=== PATIENT | female | born 1995 | race Caucasian/White ===

== ENCOUNTER 2019-10-30 23:09 | Emergency (ER) | payer MEDICAID ==
[~2019-10-30] VITALS: Ht 167.6 cm; Wt 73.0 kg
[2019-10-30 23:27] VITALS: Ht 167.6 cm; Wt 73.0 kg
[2019-10-31 02:20] VITALS: BP 128/79
== END 2019-10-31 02:20 | disposition home or self-care (01) ==
LOC: ED 23:09
DX: N83.201 Unspecified ovarian cyst, right side (principal)
CPT/HCPCS: J1885; Q0092